=== PATIENT | female | born 1975 | race Two or more races ===

== ENCOUNTER 2023-02-16 19:16 | Emergency (ER) | payer OTHER ==
[~2023-02-16] VITALS: Ht 160 cm; Wt 70.3 kg
[2023-02-16] MEDS ORDERED: CELLCEPT500 MG PO (19:51)
[2023-02-16] MEDS ORDERED: LIPITOR20 MG PO (19:52)
[2023-02-16] MEDS ORDERED: PLAQUENIL (19:52)
[2023-02-16 20:50] LABS: HEMATOCRIT 39.5 % (36.0-45.00); HEMOGLOBIN 13.5 g/dL (12.0-15.00); MEAN CELL VOLUME 88.2 fL (80.00-100.00); MEAN CORPUSCULAR HEMOGLOBIN 30.1 pg (27.00-32.0); MEAN CORPUSCULAR HGB CONC 34.1 g/dl (32.0-36.0); PLATELET COUNT 315 K/uL (150-450); RED BLOOD COUNT 4.48 M/uL (4.00-6.00); RED CELL DISTRIBUTION WIDTH 12.6 % (11.5-14.5)
[2023-02-16 21:21] LABS: CALCIUM 10.1 mg/dL (8.5-10.1); CREATININE SERUM 0.78 mg/dL (0.55-1.02); GFR 79.16; POTASSIUM 4.09 mEq/L (3.5-5.1)
== END 2023-02-16 21:52 | disposition home or self-care (01) ==
LOC: ER 19:17
PROVIDERS: General Practice
DX: J06.9 Acute upper respiratory infection, unspecified (principal); Z20.822 Contact with and (suspected) exposure to COVID-19; Z88.0 Allergy status to penicillin; Z91.013 Allergy to seafood